=== PATIENT | male | born 1955 | race African-American/Black ===

== ENCOUNTER → 2019-11-08 | Outpatient (CLI) | payer OTHER ==
--- NOTE | 2019-11-08 15:11 | KCIC ---
LUMBAR SPINE WO CONTRAST Date: 11/08/2019 11:45 AM Indication: Chronic low back pain with left lower extremity radiculopathy Comparison: 11/08/2015. Technique: Multi-planar multi-weighted magnetic resonance imaging of the lumbar spine was performed without intravenous contrast using the standard lumbar spine protocol. FINDINGS: Straightening of the lumbar lordosis. Trace anterolisthesis at L4-5. No acute fracture. Moderate multilevel degenerative disc desiccation and disc height loss. Multilevel degenerative endplate edema, worst at L4-5. The conus terminates at a normal level. No abnormal signal is seen within the visualized distal spinal cord. No clumping of intrathecal nerve roots. No soft tissue abnormality in the visualized abdomen or pelvis. T12-L1: No disc bulge. No facet arthropathy. No significant spinal stenosis or neural foraminal narrowing. L1-L2: Disc bulge. Mild facet arthropathy. Mild spinal stenosis. Mild bilateral neural foraminal narrowing. L2-L3: Disc bulge. Mild facet arthropathy. No significant spinal stenosis or neural foraminal narrowing. L3-L4: Disc bulge with annular tear. Mild facet arthropathy. Mild spinal stenosis. Moderate left lateral recess narrowing. Moderate right and severe left neural foraminal narrowing. L4-L5: Disc bulge with annular tear. Mild to moderate facet arthropathy. Mild spinal stenosis and lateral recess narrowing. Moderate right and severe left neural foraminal narrowing. L5-S1: Disc bulge with annular tear and tiny right paracentral protrusion. Mild facet arthropathy. Mild right lateral recess narrowing. No significant spinal stenosis. Moderate to severe bilateral neural foraminal narrowing. IMPRESSION: Lumbar spondylosis, detailed level by level above. Degenerative changes have slightly progressed from the prior exam. Electronically signed by: Juan Castillo MD (11/08/2019 3:08 PM) [id number]
== END | disposition home or self-care (01) ==
LOC: KCIC MRI 10:52
PROVIDERS: ATTEND Physician Assistant
DX: M51.17 Intervertebral disc disorders with radiculopathy, lumbosacral region (principal); M48.07 Spinal stenosis, lumbosacral region; M12.88 Other specific arthropathies, not elsewhere classified, other specified site; G89.29 Other chronic pain
CPT/HCPCS: 72148